=== PATIENT | female | born 1990 | race American Indian/Alaskan Native ===

== ENCOUNTER 2019-04-15 16:30 | Emergency (ER) | payer SELFPAY ==
[2019-04-15 16:58] VITALS: BP 153/81
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
== END 2019-04-15 17:01 | disposition left against medical advice (07) ==
LOC: ED 16:30
DX: R51 Headache (principal); W22.8XXA Striking against or struck by other objects, initial encounter; Y93.89 Activity, other specified; Y92.89 Other specified places as the place of occurrence of the external cause; Y99.8 Other external cause status
CPT/HCPCS: 99281